=== PATIENT | male | born 1955 | race Caucasian/White ===

== ENCOUNTER 2019-03-01 11:14 | Inpatient (IN) | payer OTHER ==
[~2019-03-01] VITALS: Ht 332.7 cm; Wt 65.2 kg
[2019-03-01] MEDS ORDERED: aspirin 81mg tab.chew PO ONE (11:55)
[2019-03-01] MEDS ORDERED: nitroGLYCERIN 0.4mg/hour patch TD ONE (11:55)
[2019-03-01 12:04] LABS: BASOPHILS # (AUTO) 0.1 X10'3 (0-0.2); BASOPHILS % (AUTO) 0.6 % (0-1); EOSINOPHILS # (AUTO) 0.1 X10'3 (0-0.9); EOSINOPHILS % (AUTO) 0.5 % (0-6); HEMATOCRIT 44.3 % (42.0-52.0); HEMOGLOBIN 15.9 g/dl (14.0-17.9); LYMPHOCYTES # (AUTO) 2.6 X10'3 (1.1-4.8); LYMPHOCYTES % (AUTO) 21.5 % (21-51); MEAN CORPUSCULAR HEMOGLOBIN 41.4 PG (27.0-31.0); MEAN CORPUSCULAR HGB CONC 35.9 g/dL (33.0-36.5); MEAN CORPUSCULAR VOLUME 115.6 FL (78-98); MEAN PLATELET VOLUME 6.6 FL (7.4-10.4); MONOCYTES # (AUTO) 1.4 X10'3 (0-0.9); MONOCYTES % (AUTO) 11.4 % (2-12); NEUTROPHILS # (AUTO) 8.2 X10'3 (1.8-7.7); PLATELET COUNT 336 X10'3 (140-440); RED BLOOD COUNT 3.83 X10'6 (4.70-6.10); RED CELL DISTRIBUTION WIDTH 13.4 % (11.5-14.5); WHITE BLOOD COUNT 12.3 X10'3 (4.5-11.0)
[2019-03-01 12:05] LABS: ALANINE AMINOTRANSFERASE 14 U/L (12-78); ALBUMIN 4.4 G/DL (3.4-5.0); ALBUMIN/GLOBULIN RATIO 1.2 (1.1-1.5); ALKALINE PHOSPHATASE 92 IU/L (46-116); ANION GAP 12 (8-16); ASPARTATE AMINO TRANSFERASE 13 U/L (10-37); BILIRUBIN,TOTAL 0.5 MG/DL (0.1-1.0); BLOOD UREA NITROGEN 11 MG/DL (7-18); BUN/CREATININE RATIO 10.6 (5.4-32.0); CALCIUM 9.6 MG/DL (8.5-10.1); CHLORIDE 97 MMOL/L (99-107); CREATININE 1.04 MG/DL (0.60-1.10); GLUCOSE 131 MG/DL (70-104); POTASSIUM 3.9 MMOL/L (3.5-5.1); SODIUM 133 MMOL/L (135-145); TOTAL CARBON DIOXIDE 23.9 MMOL/L (24-32); eGFR 72 ML/MIN
[2019-03-01 12:13] LABS: PLATELET ESTIMATE NORMAL; POLYCHROMASIA FEW
[2019-03-01 12:14] LABS: STOMATOCYTES 1+
[2019-03-01] MEDS ORDERED: magnesium 2GM in 50ml NS 50 ML IV PRN (12:50)
[2019-03-01] MEDS ORDERED: ondansetron/PF 4mg/2ml inj IV PRN (12:50)
[2019-03-01] MEDS ORDERED: potassium CL 10mEq/100ml bag 100 ML IV PRN ×2 (12:50)
[2019-03-01] MEDS ORDERED: mag hydrox/Alum hydrox/simeth 30ml oral suspension PO PRN (12:50)
[2019-03-01] MEDS ORDERED: NAPR-435 PO (12:50)
[2019-03-01] MEDS ORDERED: regadenoson 0.4mg/5ml syringe IV ONE (12:50)
[2019-03-01] MEDS ORDERED: metoprolol tartrate 1mg/ml inj IV PRN (12:50)
[2019-03-01] MEDS ORDERED: magnesium 4gm in 100ml NS 100 ML IV PRN (12:50)
[2019-03-01] MEDS ORDERED: CLON0.2T PO (12:50)
[2019-03-01] MEDS ORDERED: IRBE300T19 PO (12:50)
[2019-03-01] MEDS ORDERED: nitroGLYCERIN 0.4mg SUBLingual tab SL PRN (12:50)
[2019-03-01] MEDS ORDERED: MAGN400C PO (12:50)
[2019-03-01] MEDS ORDERED: ipratropium/albuterol 3ml nebule NEB PRN (12:50)
[2019-03-01] MEDS ORDERED: OXYC10TA47 PO (12:50)
[2019-03-01] MEDS ORDERED: METH500T6 PO (12:50)
[2019-03-01] MEDS ORDERED: aminophylline 250mg/10ml inj. IV PRN (12:50)
[2019-03-01] MEDS ORDERED: potassium Cl 20 mEq SR tablet PO PRN ×2 (12:50)
[2019-03-01] MEDS ORDERED: AMLO10TA PO (12:50)
[2019-03-01] MEDS ORDERED: haloperidol lactate 5mg/ml inj IM PRN (13:25)
[2019-03-01] MEDS ORDERED: haloperidol 5mg tablet PO PRN (13:25)
[2019-03-01] MEDS ORDERED: LORazepam 1 MG tablet PO PRN (13:25)
[2019-03-01] MEDS ORDERED: thiamine inj. 100 MG in normal saline 100ml IV soln 100 ML IV ONE (13:25)
[2019-03-01] MEDS ORDERED: LORazepam 2 mg/ml vial IV PRN (13:25)
[2019-03-01] MEDS ORDERED: iohexol 350MG/ML 100ml bottle IV ONE (13:53)
--- NOTE | 2019-03-01 14:50 | NUR ---
Received report from Noemy FERMIN in the ED, patient arrived to PCU by wheelchair, oriented to room. Ambulated self to bed. 2 RN skin check done. Vitals BP 131/72, HR 90, Temp 98.0 F, 02 92 RA, No pain.
[2019-03-01 15:00] VITALS: BP 121/74
[2019-03-01] MEDS: cyclobenzaprine 10mg tablet PO SCH ×2 (16:00→23:54)
[2019-03-01] MEDS ORDERED: FLU VACC QS2019-20 36MOS UP/PF 60 MCG/0.5 ML SYRINGE IMVAC ONE (17:50)
--- NOTE | 2019-03-01 18:39 | NUR ---
Patient in room PCU 3018. I have received report from ZANDER Marie and had the opportunity to ask questions and assume patient care.
--- NOTE | 2019-03-01 18:40 | NUR ---
Problems reprioritized. Patient report given, questions answered & plan of care reviewed with Marissa FERMIN. All patient's needs met at this time.
[2019-03-01] MEDS: cloNIDine 0.1 mg tablet PO SCH (20:00)
[2019-03-01] MEDS ORDERED: magnesium oxide 400mg tablet PO SCH (20:00)
[2019-03-01] MEDS: docusate sod 100mg capsule PO SCH (20:00)
[2019-03-01] MEDS: oxyCODONE IR 5mg (immed. release) tablet PO PRN (21:47)
[2019-03-01] MEDS: nicotine 14mg patch - 24hr TD SCH (21:49)
[2019-03-01 23:57] VITALS: BP 118/64
[2019-03-02] VITALS (15 sets, daily range): BP systolic 106–154; BP diastolic 61–75
[2019-03-02 05:43] LABS: BASOPHILS # (AUTO) 0.1 X10'3 (0-0.2); EOSINOPHILS # (AUTO) 0.2 X10'3 (0-0.9); EOSINOPHILS % (AUTO) 1.6 % (0-6); HEMATOCRIT 37.4 % (42.0-52.0); HEMOGLOBIN 13.4 g/dl (14.0-17.9); LYMPHOCYTES # (AUTO) 4.3 X10'3 (1.1-4.8); LYMPHOCYTES % (AUTO) 38.3 % (21-51); MEAN CORPUSCULAR HEMOGLOBIN 41.3 PG (27.0-31.0); MEAN CORPUSCULAR HGB CONC 35.8 g/dL (33.0-36.5); MEAN CORPUSCULAR VOLUME 115.3 FL (78-98); MEAN PLATELET VOLUME 7.2 FL (7.4-10.4); MONOCYTES # (AUTO) 1.1 X10'3 (0-0.9); NEUTROPHILS # (AUTO) 5.5 X10'3 (1.8-7.7); NEUTROPHILS % (AUTO) 49.1 % (42-75); PLATELET COUNT 287 X10'3 (140-440); RED BLOOD COUNT 3.24 X10'6 (4.70-6.10); RED CELL DISTRIBUTION WIDTH 13.1 % (11.5-14.5); WHITE BLOOD COUNT 11.1 X10'3 (4.5-11.0)
--- NOTE | 2019-03-02 06:29 | NUR ---
Problems reprioritized. Patient report given, questions answered & plan of care reviewed with ZANDER Mckinnon.
--- NOTE | 2019-03-02 06:35 | NUR ---
Patient in room PCU 3018. I have received report from ZANDER Ann and had the opportunity to ask questions and assume patient care.
[2019-03-02 06:37] LABS: ALANINE AMINOTRANSFERASE 10 U/L (12-78); ALBUMIN 3.5 G/DL (3.4-5.0); ALBUMIN/GLOBULIN RATIO 1.1 (1.1-1.5); ALKALINE PHOSPHATASE 73 IU/L (46-116); ANION GAP 10 (8-16); ASPARTATE AMINO TRANSFERASE 14 U/L (10-37); BILIRUBIN,TOTAL 0.5 MG/DL (0.1-1.0); BLOOD UREA NITROGEN 10 MG/DL (7-18); BUN/CREATININE RATIO 11.1 (5.4-32.0); CALCIUM 8.8 MG/DL (8.5-10.1); CHLORIDE 102 MMOL/L (99-107); CHOL/HDL RATIO 2.8 (0.00-4.99); CHOLESTEROL 163 MG/DL (0-200); GLUCOSE 90 MG/DL (70-104); HDL CHOLESTEROL 58 MG/DL (35-60); LDL CHOLESTEROL 102 MG/DL (50-100); MAGNESIUM 2.2 MG/DL (1.5-2.4); PHOSPHORUS 3.6 MG/DL (2.3-4.5); POTASSIUM 3.9 MMOL/L (3.5-5.1); SODIUM 136 MMOL/L (135-145); TOTAL PROTEIN 6.6 G/DL (6.4-8.2); TRIGLYCERIDES 80 MG/DL (20-135); eGFR 85 ML/MIN
[2019-03-02] MEDS: cyclobenzaprine 10mg tablet PO SCH ×2 (07:40→15:39)
[2019-03-02] MEDS: oxyCODONE IR 5mg (immed. release) tablet PO PRN ×3 (07:40→20:40)
[2019-03-02] MEDS ORDERED: amLODIPine 5mg tablet PO SCH (08:00)
[2019-03-02] MEDS: docusate sod 100mg capsule PO SCH ×2 (08:00→20:42)
[2019-03-02] MEDS: K and/or MAG REPLACEMENT MC SCH (08:00)
[2019-03-02] MEDS ORDERED: magnesium oxide 400mg tablet PO SCH ×2 (08:00→20:24)
[2019-03-02] MEDS ORDERED: folic acid inj. 2 MG, MVI, adult No.4 with vit. K 10 ML in dextrose 5% water 500ml 500 ML IV SCH ×3 (08:00)
[2019-03-02] MEDS ORDERED: nicotine 14mg patch - 24hr TD SCH (08:00)
[2019-03-02] MEDS: enoxaparin 40mg/0.4ml syringe SQ SCH (10:56)
[2019-03-02] MEDS: cloNIDine 0.1 mg tablet PO SCH ×2 (10:56→20:40)
--- NOTE | 2019-03-02 11:26 | NUR ---
Paged Dr. Puga to notify of Betsy scan results. PAGER ID: [phone] MESSAGE: [phone] Severiano Beth: MANYDI the patients Betsy scan has resulted. Can he have a diet ordered? Thanks, Pratibha deutsch [phone]
[2019-03-02] MEDS: thiamine 100mg tablet PO SCH (12:26)
[2019-03-02] MEDS: folic acid 1mg tablet PO SCH (12:26)
[2019-03-02] MEDS: aspirin 81mg tablet.DR PO SCH (12:26)
[2019-03-02] MEDS ORDERED: iohexol 350MG/ML 100ml bottle IV ONE (17:02)
[2019-03-02] MEDS ORDERED: iohexol 350 MG/ML 50ML vial IV ONE (17:02)
--- NOTE | 2019-03-02 17:17 | NUR ---
Patient leaving the floor for CT.
--- NOTE | 2019-03-02 18:30 | NUR ---
Problems reprioritized. Patient report given, questions answered & plan of care reviewed with ZANDER Ann.
--- NOTE | 2019-03-02 19:08 | NUR ---
Patient in room PCU 3018. I have received report from ZANDER Mckinnon and had the opportunity to ask questions and assume patient care.
[2019-03-02] MEDS ORDERED: losartan 50mg tablet PO SCH ×3 (20:00→20:23)
[2019-03-02] MEDS: metoprolol tartrate 25mg tablet PO SCH (20:42)
[2019-03-02] MEDS: nicotine 14mg patch - 24hr TD SCH (20:44)
[2019-03-03] MEDS: cyclobenzaprine 10mg tablet PO SCH ×2 (00:27→07:30)
[2019-03-03 02:47] VITALS: BP 119/68
[2019-03-03 04:56] LABS: BASOPHILS # (AUTO) 0.1 X10'3 (0-0.2); BASOPHILS % (AUTO) 0.7 % (0-1); EOSINOPHILS # (AUTO) 0.2 X10'3 (0-0.9); EOSINOPHILS % (AUTO) 2.1 % (0-6); HEMATOCRIT 40.5 % (42.0-52.0); HEMOGLOBIN 14.5 g/dl (14.0-17.9); LYMPHOCYTES # (AUTO) 3.8 X10'3 (1.1-4.8); LYMPHOCYTES % (AUTO) 36.5 % (21-51); MEAN CORPUSCULAR HEMOGLOBIN 41.1 PG (27.0-31.0); MEAN CORPUSCULAR HGB CONC 35.8 g/dL (33.0-36.5); MEAN CORPUSCULAR VOLUME 114.9 FL (78-98); MEAN PLATELET VOLUME 6.8 FL (7.4-10.4); MONOCYTES # (AUTO) 1.2 X10'3 (0-0.9); MONOCYTES % (AUTO) 11.4 % (2-12); NEUTROPHILS # (AUTO) 5.1 X10'3 (1.8-7.7); NEUTROPHILS % (AUTO) 49.3 % (42-75); PLATELET COUNT 293 X10'3 (140-440); RED BLOOD COUNT 3.53 X10'6 (4.70-6.10); RED CELL DISTRIBUTION WIDTH 13.3 % (11.5-14.5); WHITE BLOOD COUNT 10.4 X10'3 (4.5-11.0)
[2019-03-03 05:17] LABS: ALANINE AMINOTRANSFERASE 9 U/L (12-78); ALBUMIN 3.4 G/DL (3.4-5.0); ALKALINE PHOSPHATASE 77 IU/L (46-116); ANION GAP 9 (8-16); ASPARTATE AMINO TRANSFERASE 10 U/L (10-37); BILIRUBIN,TOTAL 0.5 MG/DL (0.1-1.0); BLOOD UREA NITROGEN 14 MG/DL (7-18); BUN/CREATININE RATIO 16.1 (5.4-32.0); CALCIUM 9.4 MG/DL (8.5-10.1); CHLORIDE 103 MMOL/L (99-107); CREATININE 0.87 MG/DL (0.60-1.10); GLUCOSE 90 MG/DL (70-104); MAGNESIUM 2.1 MG/DL (1.5-2.4); PHOSPHORUS 3.8 MG/DL (2.3-4.5); SODIUM 136 MMOL/L (135-145); TOTAL CARBON DIOXIDE 23.9 MMOL/L (24-32); TOTAL PROTEIN 6.7 G/DL (6.4-8.2); eGFR 88 ML/MIN
--- NOTE | 2019-03-03 06:15 | NUR ---
Patient in room PCU 3018. I have received report from Marissa FERMIN and had the opportunity to ask questions and assume patient care.
--- NOTE | 2019-03-03 06:15 | NUR ---
Problems reprioritized. Patient report given, questions answered & plan of care reviewed with ZANDER Mckinnon.
[2019-03-03] MEDS: K and/or MAG REPLACEMENT MC SCH (06:38)
[2019-03-03 07:00] VITALS: BP 136/76
[2019-03-03] MEDS: folic acid 1mg tablet PO SCH (07:30)
[2019-03-03] MEDS: docusate sod 100mg capsule PO SCH (07:30)
[2019-03-03] MEDS: enoxaparin 40mg/0.4ml syringe SQ SCH (07:30)
[2019-03-03] MEDS: cloNIDine 0.1 mg tablet PO SCH (07:31)
[2019-03-03] MEDS: metoprolol tartrate 25mg tablet PO SCH (07:32)
[2019-03-03] MEDS: thiamine 100mg tablet PO SCH (07:32)
[2019-03-03] MEDS: oxyCODONE IR 5mg (immed. release) tablet PO PRN (07:32)
[2019-03-03 07:36] LABS: PLATELET ESTIMATE NORMAL
[2019-03-03] MEDS ORDERED: atorvastatin 20mg tablet PO SCH (08:00)
--- NOTE | 2019-03-03 08:22 | NUR ---
Called and spoke the pharmacist, per pharmacist, patient to have Nicotine patch that was applied 03/02 2044 be removed and apply new Nicotine patch with am medication pass.
[2019-03-03] MEDS ORDERED: NICO-631 TD (09:05)
[2019-03-03] MEDS ORDERED: NITR0.4T51 SL (09:05)
[2019-03-03] MEDS ORDERED: ATOR20TA66 PO (09:05)
[2019-03-03] MEDS ORDERED: ASPI-1071 PO (09:05)
[2019-03-03] MEDS: aspirin 81mg tablet.DR PO SCH (09:18)
[2019-03-03] MEDS: nicotine 14mg patch - 24hr TD SCH (09:19)
[2019-03-03 11:00] VITALS: BP 130/76
--- NOTE | 2019-03-03 11:50 | NUR ---
Pt stable for d/c per md order, discharge instructions given, all questions and concerns addressed, new prescriptions called into [facility], smoking cessation education material reviewed, telel monitor d/c, PIV taken out, walked off unit with RN and .
[2019-03-03] MEDS ORDERED: METO25TA6 PO (18:30)
== END 2019-03-03 11:59 | disposition home or self-care (01) | DRG 303 ==
LOC: ER 11:14 → ED HOLD 13:06 → PCU 3S 14:50
PROVIDERS: ADMIT Family Medicine; ATTEND Family Medicine
PROC: B32T1ZZ Computerized Tomography (CT Scan) of Left Pulmonary Artery using Low Osmolar Contrast (ICD-10-PCS; principal; 2019-03-01)
PROC: B3201ZZ Computerized Tomography (CT Scan) of Thoracic Aorta using Low Osmolar Contrast (ICD-10-PCS; 2019-03-01)
PROC: B32S1ZZ Computerized Tomography (CT Scan) of Right Pulmonary Artery using Low Osmolar Contrast (ICD-10-PCS; 2019-03-01)
PROC: 4A02XM4 Measurement of Cardiac Total Activity, External Approach (ICD-10-PCS; 2019-03-02)
PROC: 3E033HZ Introduction of Radioactive Substance into Peripheral Vein, Percutaneous Approach (ICD-10-PCS; 2019-03-02)
PROC: BQ2S1ZZ Computerized Tomography (CT Scan) of Left Lower Extremity using Low Osmolar Contrast (ICD-10-PCS; 2019-03-02)
DX: I25.110 Atherosclerotic heart disease of native coronary artery with unstable angina pectoris (principal); E87.1 Hypo-osmolality and hyponatremia; B19.20 Unspecified viral hepatitis C without hepatic coma; D72.823 Leukemoid reaction; E78.00 Pure hypercholesterolemia, unspecified; E78.5 Hyperlipidemia, unspecified; M54.9 Dorsalgia, unspecified; M54.5 Low back pain; R00.0 Tachycardia, unspecified; F17.290 Nicotine dependence, other tobacco product, uncomplicated; G89.29 Other chronic pain; I10 Essential (primary) hypertension; I73.9 Peripheral vascular disease, unspecified; Z79.82 Long term (current) use of aspirin; Z79.899 Other long term (current) drug therapy; Z28.21 Immunization not carried out because of patient refusal; Z88.5 Allergy status to narcotic agent; Z72.89 Other problems related to lifestyle; Z71.6 Tobacco abuse counseling
CPT/HCPCS: 36415; 71045; 71275; 73706; 78452; 80053; 80061; 83735; 84100; 84484; 85025; 87081; 93005; 93017; 93306; 93922; 93925; 94760; 99285; A9500; G0378; J0280; J1650; J2785; J3411; J3490; J7060; Q2037; Q9967

== ENCOUNTER 2019-07-19 10:32 | Day surgery (SDC) | payer MEDICARE ==
[~2019-07-19] VITALS: Ht 180.3 cm; Wt 64.0 kg
[2019-07-19] VITALS (11 sets, daily range): BP systolic 152–181; BP diastolic 71–77
[~2019-07-19 10:32] MED LIST: ASPI-1071 PO; ATOR20TA66 PO; CLON0.2T PO; IRBE300T18 PO; MAGN400C PO; METH500T6 PO; METO25TA6 PO; NICO-631 TD; NITR0.4T51 SL; OXYC10TA47 PO
[2019-07-19] MEDS ORDERED: normal saline 1,000 ML IV SCH (10:55)
[2019-07-19] MEDS ORDERED: diphenhydrAMINE 25mg capsule PO PRN (10:55)
[2019-07-19] MEDS ORDERED: METO25TA6 PO (11:12)
[2019-07-19] MEDS ORDERED: ASPI81TA52 PO (11:12)
[2019-07-19] MEDS ORDERED: NITR0.4T51 SL (11:12)
[2019-07-19] MEDS ORDERED: ATOR20TA PO (11:12)
[2019-07-19] MEDS ORDERED: METO-467 PO (11:12)
[2019-07-19] MEDS ORDERED: LOSA100T3 PO (11:13)
[2019-07-19] MEDS ORDERED: PER5325T PO (11:15)
[2019-07-19 11:49] LABS: BASOPHILS % (AUTO) 0.7 % (0-1); EOSINOPHILS # (AUTO) 0.1 X10'3 (0-0.9); EOSINOPHILS % (AUTO) 1.1 % (0-6); HEMATOCRIT 35.9 % (42.0-52.0); HEMOGLOBIN 12.2 g/dl (14.0-17.9); LYMPHOCYTES # (AUTO) 2.5 X10'3 (1.1-4.8); LYMPHOCYTES % (AUTO) 39.2 % (21-51); MEAN CORPUSCULAR HEMOGLOBIN 40.5 PG (27.0-31.0); MEAN CORPUSCULAR HGB CONC 34.1 g/dL (33.0-36.5); MEAN CORPUSCULAR VOLUME 118.8 FL (78-98); MEAN PLATELET VOLUME 6.9 FL (7.4-10.4); MONOCYTES # (AUTO) 0.6 X10'3 (0-0.9); MONOCYTES % (AUTO) 9.7 % (2-12); NEUTROPHILS # (AUTO) 3.2 X10'3 (1.8-7.7); NEUTROPHILS % (AUTO) 49.3 % (42-75); PLATELET COUNT 317 X10'3 (140-440); RED BLOOD COUNT 3.02 X10'6 (4.70-6.10); RED CELL DISTRIBUTION WIDTH 16.8 % (11.5-14.5); WHITE BLOOD COUNT 6.4 X10'3 (4.5-11.0)
[2019-07-19 12:05] LABS: ALBUMIN 3.8 G/DL (3.4-5.0); ANION GAP 8 (8-16); BLOOD UREA NITROGEN 8 MG/DL (7-18); BUN/CREATININE RATIO 9.5 (5.4-32.0); CALCIUM 9.1 MG/DL (8.5-10.1); CHLORIDE 106 MMOL/L (99-107); CREATININE 0.84 MG/DL (0.60-1.10); GLUCOSE 99 MG/DL (70-104); MAGNESIUM 2.1 MG/DL (1.5-2.4); POTASSIUM 4.4 MMOL/L (3.5-5.1); SODIUM 139 MMOL/L (135-145); TOTAL CARBON DIOXIDE 24.7 MMOL/L (24-32); eGFR > 90 ML/MIN
[2019-07-19] MEDS ORDERED: midazolam 2 mg/2 ml injection ONE ×2 (12:20→12:40)
[2019-07-19] MEDS ORDERED: fentaNYL/PF 50MCG/1 ML 2ML syringe ONE (12:20)
[2019-07-19] MEDS ORDERED: LIDOcaine 1% (10mg/ml)w/preservative injection 20ml MDV ONE (12:20)
[2019-07-19] MEDS ORDERED: heparin 1,000unit/ml 10ml vial 10 ML ONE (12:21)
[2019-07-19] MEDS ORDERED: iohexol 350MG/ML 100ml bottle IV ONE (12:21)
[2019-07-19] MEDS ORDERED: iohexol 350 MG/ML 50ML vial IV ONE (12:21)
[2019-07-19 12:26] LABS: ANISOCYTOSIS 1+; PLATELET ESTIMATE NORMAL; STOMATOCYTES FEW
== END 2019-07-19 17:00 | disposition home or self-care (01) ==
LOC: SSTAY O 10:32 → MED 3N 10:33 → SSTAY O 17:00
PROVIDERS: ATTEND Internal Medicine Cardiovascular Disease
DX: R07.9 Chest pain, unspecified (principal); I25.110 Atherosclerotic heart disease of native coronary artery with unstable angina pectoris; I25.82 Chronic total occlusion of coronary artery; E78.5 Hyperlipidemia, unspecified; I10 Essential (primary) hypertension; M19.90 Unspecified osteoarthritis, unspecified site; F17.210 Nicotine dependence, cigarettes, uncomplicated; Z98.890 Other specified postprocedural states; Z86.19 Personal history of other infectious and parasitic diseases; Z88.8 Allergy status to other drugs, medicaments and biological substances; Z79.899 Other long term (current) drug therapy; Z79.82 Long term (current) use of aspirin
CPT/HCPCS: 36415; 80048; 83735; 85025; 85610; 93005; 93458; 93571; 99152; 99153; C1769; C1894; J1644; J2001; J2250; J3010; J7030; Q0163; Q9967; 75710; A4620; A6258; C1760; GO378

== ENCOUNTER 2019-09-23 08:00 | Inpatient (IN) | payer MEDICARE, BC ==
[2019-09-20 10:12] LABS: BASOPHILS # (AUTO) 0.1 X10'3 (0-0.2); BASOPHILS % (AUTO) 1.2 % (0-1); EOSINOPHILS # (AUTO) 0.1 X10'3 (0-0.9); LYMPHOCYTES % (AUTO) 23.9 % (21-51); MEAN CORPUSCULAR HEMOGLOBIN 39.2 PG (27.0-31.0); MEAN CORPUSCULAR HGB CONC 34.6 g/dL (33.0-36.5); MEAN CORPUSCULAR VOLUME 113.3 FL (78-98); MEAN PLATELET VOLUME 7.4 FL (7.4-10.4); MONOCYTES % (AUTO) 12.2 % (2-12); NEUTROPHILS # (AUTO) 5.3 X10'3 (1.8-7.7); NEUTROPHILS % (AUTO) 61.7 % (42-75); PRE OP HEMATOCRIT 45.6 % (42.0-52.0); PRE OP HEMOGLOBIN 15.8 g/dL (14.0-17.9); PRE OP PLATELET COUNT 259 X10'3 (140-440); RED BLOOD COUNT 4.02 X10'6 (4.70-6.10); RED CELL DISTRIBUTION WIDTH 14.3 % (11.5-14.5)
[2019-09-20 10:14] LABS: CLARITY,URINE CLEAR (Clear); COLOR,URINE YELLOW (Yellow); GLUCOSE, URINE NEGATIVE (Neg); KETONES,URINE TRACE mg/dl (Neg); LEUKOCYTE ESTERASE ,URINE TRACE (Neg); NITRITES, URINE NEGATIVE (Neg); OCCULT BLOOD,URINE NEGATIVE (Neg); PROTEIN,URINE NEGATIVE (Neg); UROBILINOGEN,URINE 0.2 E.U/dL (0.2-1.0)
[2019-09-20 10:26] LABS: UA COLLECTION TYPE CLN CATCH MIDSTREAM
[2019-09-20 10:27] LABS: FINE GRANULAR CAST 0-3 /LPF (NEGATIVE)
[2019-09-20 10:28] LABS: HYALINE CASTS 0-3 /LPF (NEGATIVE); MUCUS STRANDS NONE SEEN /LPF (Neg); SQUAMOUS EPITHELIAL CELL,UR NONE SEEN /LPF (FEW)
[2019-09-20 10:29] LABS: BACTERIA,URINE NONE SEEN /HPF (Neg); PRE OP INR 0.9 INR; PRE OP PROTIME 9.7 SECONDS (9.0-12.0); RBC,URINE 0-2 /HPF (0-2); TRANSITIONAL EPI CELLS,URINE FEW /HPF; WBC,URINE 0-4 /HPF (0-4)
[2019-09-20 10:32] LABS: ALBUMIN/GLOBULIN RATIO 1.1 (1.1-1.5); ALKALINE PHOSPHATASE 85 IU/L (46-116); BLOOD UREA NITROGEN 10 MG/DL (7-18); BUN/CREATININE RATIO 11.4 (5.4-32.0); CALCIUM 9.2 MG/DL (8.5-10.1); CHLORIDE 101 MMOL/L (99-107); CREATININE 0.88 MG/DL (0.60-1.10); PRE OP ALT 44 U/L (30-65); PRE OP ANION GAP 11 (8-16); PRE OP AST 51 U/L (10-37); PRE OP BILIRUB, TOTAL 0.5 MG/DL (0.0-1.0); PRE OP GLUCOSE 94 MG/DL (70-104); PRE OP POTASSIUM 4.9 MMOL/L (3.4-5.1); PRE OP SODIUM 136 MMOL/L (135-145); TOTAL CARBON DIOXIDE 24.4 MMOL/L (24-32); TOTAL PROTEIN 7.5 G/DL (6.4-8.2); eGFR 87 ML/MIN
[2019-09-20 10:54] LABS: PLATELET ESTIMATE NORMAL
[~2019-09-23] VITALS: Ht 180.3 cm; Wt 65.4 kg
[~2019-09-23 08:00] MED LIST changes: -ASPI-1071 PO; +ASPI81TA52 PO; +ATOR20TA PO; -ATOR20TA66 PO; -IRBE300T18 PO; +LOSA100T3 PO; +METO-395 PO; -METO25TA6 PO; -NICO-631 TD; -OXYC10TA47 PO; +OXYC5CAP19 PO; +albuterol 2.5 MG/3 ML nebule NEB ONE
[2019-09-27] VITALS (21 sets, daily range): BP systolic 122–152; BP diastolic 73–89
[2019-09-27] MEDS ORDERED: ringers solution, lacted 1,000 ML IV SCH ×2 (05:00→09:01)
[2019-09-27] MEDS ORDERED: DOCUMENT DATE & TIME OF BETA-BLOCKER PO ONE (05:30)
[2019-09-27] MEDS ORDERED: famotidine 20mg tablet PO ONE (05:30)
[2019-09-27] MEDS ORDERED: cefazolin/dext.iso 2gm/50ml 50 ML IV ONE (05:30)
[2019-09-27] MEDS ORDERED: albuterol 2.5 MG/3 ML nebule NEB ONE (05:30)
[2019-09-27] MEDS ORDERED: meperidine/PF 25mg/ml syringe IV PRN ×3 (09:05)
[2019-09-27] MEDS ORDERED: proCHLORperazine 10 MG/2 ml inj IV PRN (09:05)
[2019-09-27] MEDS ORDERED: morphine 4 MG/ML inj SYRINge IV PRN (09:05)
[2019-09-27] MEDS ORDERED: ondansetron/PF 4mg/2ml inj IV PRN (09:05)
[2019-09-27] MEDS ORDERED: morphine 2 MG/ML inj. syringe IV PRN (09:05)
[2019-09-27] MEDS ORDERED: LIDOcaine 1% (10mg/ml) 2ml vial ONE (12:17)
[2019-09-27] MEDS ORDERED: heparin 10,000 units/1 ML INJ ONE (12:17)
[2019-09-27] MEDS ORDERED: ondansetron/PF 4mg/2ml inj ONE (13:12)
[2019-09-27] MEDS ORDERED: sevoflurane 250ml liquid IH ONE (13:12)
[2019-09-27] MEDS ORDERED: dexamethasone sod phosphate 10mg/ml inj ONE (13:12)
[2019-09-27] MEDS ORDERED: fentaNYL /PF 50mcg/ml 5ml ampule ONE (13:13)
[2019-09-27] MEDS ORDERED: MIDAZolam 5mg/5ml vial ONE (13:13)
[2019-09-27] MEDS ORDERED: LIDOcaine 2% (20mg/ml) 5ml vial ONE (14:26)
[2019-09-27] MEDS ORDERED: albumin (Human) 5% 250ml 250 ML IV ONE (14:26)
[2019-09-27] MEDS ORDERED: rocuronium 10mg/ml inj IV ONE (14:26)
[2019-09-27] MEDS ORDERED: propofol inj 20 ML IV ONE (14:26)
[2019-09-27] MEDS ORDERED: labetalol 20mg/4ml (5mg/ml) syringe IV ONE (14:32)
[2019-09-27] MEDS ORDERED: morphine 4 MG/ML inj SYRINge ONE (16:00)
[2019-09-27] MEDS ORDERED: clindamycin phosphate 150mg/ml inj. ONE (16:00)
[2019-09-27] MEDS ORDERED: gentamicin 40 MG/1 ML inj ONE (16:00)
[2019-09-27 16:11] LABS: ISTAT ANION GAP 8 (8-12); ISTAT BUN 9 mg/dL (6-19); ISTAT CL 101 mmol/L (99-107); ISTAT CREATININE 0.6 mg/dL (0.8-1.3); ISTAT GLUCOSE 140 mg/dL (70-104); ISTAT HGB 12.2 g/dl (14.0-18.0); ISTAT Hct 36 %PCV (42-52); ISTAT IONIZED CALCIUM 1.08 mmol/L (1.03-1.32); ISTAT K 4.5 mmol/L (3.5-5.1); ISTAT NA 131 mmol/L (135-145); ISTAT TOTAL CO2 22 mmol/L (24-32); ISTAT eGFR > 90 ML/MIN
[2019-09-27] MEDS ORDERED: nitroGLYCERIN-Tridil 50MG/D5W 250 ML IV ONE (16:26)
[2019-09-27] MEDS ORDERED: neostigmine methylsulfate 1 MG/ML 10ml vial ONE (16:33)
[2019-09-27] MEDS ORDERED: glycopyrrolate 0.2mg/ml inj ONE (16:33)
--- NOTE | 2019-09-27 16:44 | NUR ---
Received from OR via , accompanied by Anesthesiologist DR POE and report given by Anesthesiolgist. AWAKENS TO VOICE. VITALS STABLE. DRESSINGS DI. CRISTI PAIN. GILLETTE WITH CLEAR URINE.
[2019-09-27] MEDS ORDERED: HYDROmorphone 1 mg/ml syringe IV PRN ×2 (17:00→20:30)
[2019-09-27 17:24] LABS: PARTIAL THROMBOPLASTIN TIME > 139 SECONDS (22-32)
--- NOTE | 2019-09-27 17:29 | NUR ---
CALLED FOR PTT MORE THAN 139. NO ORDERS RECIEVED
--- NOTE | 2019-09-27 17:44 | NUR ---
Report called to receiving nurse. Transferred via BED Belongings . Special Issues communicated to receiving nurse. AWAKE AND ORIENTED. VITALS STABLE. DRESSINGS DI. STATES PAIN IMPROVING. REMOVED 100CC OF SEROSANG FLUID FROM MAIA. TO ICU RM 2044 AT THIS TIME.
--- NOTE | 2019-09-27 17:45 | NUR ---
received from Benji FERMIN from PACU. Placed on monitor tolerating ice chips. no scds per dr tesfaye. pedal pulses strong and palp bilateral. 95 in
--- NOTE | 2019-09-27 18:06 | NUR ---
report to yasmine FERMIN
[2019-09-27] MEDS: ondansetron/PF 4mg/2ml inj IV PRN (18:16)
[2019-09-27] MEDS: potassium CL 20mEq in D5-1/2NS 1,000 ML IV SCH (18:25)
[2019-09-27] MEDS: nitroGLYCERIN-Tridil 50MG/D5W 250 ML IV PRN (19:43)
[2019-09-27] MEDS ORDERED: HYDROmorphone/NS 1 mg/ml CADD 50 ML IV SCH ×2 (20:50→21:00)
--- NOTE | 2019-09-27 21:00 | NUR ---
2 RN skin check done with NOA Bazan RN. Skin intact. Midline abdominal incision dressing in place. Not seen.
[2019-09-27] MEDS: HYDROmorphone/NS 1 mg/ml CADD 50 ML IV SCH ×2 (21:57→23:00)
[2019-09-28] VITALS (36 sets, daily range): BP systolic 129–186; BP diastolic 73–99
[2019-09-28] MEDS: ceFAZolin inj. 1,000 MG in dextrose 5%-water 50ml 50 ML IV SCH ×3 (00:41→15:13)
[2019-09-28] MEDS: potassium CL 20mEq in D5-1/2NS 1,000 ML IV SCH ×2 (00:42→07:59)
[2019-09-28] MEDS: HYDROmorphone/NS 1 mg/ml CADD 50 ML IV SCH ×12 (01:00→23:00)
[2019-09-28 03:14] LABS: BASOPHILS % (AUTO) 0.1 % (0-1); EOSINOPHILS % (AUTO) 0 % (0-6); HEMATOCRIT 40.4 % (42.0-52.0); HEMOGLOBIN 13.8 g/dl (14.0-17.9); LYMPHOCYTES # (AUTO) 0.7 X10'3 (1.1-4.8); LYMPHOCYTES % (AUTO) 5.8 % (21-51); MEAN CORPUSCULAR HEMOGLOBIN 38.7 PG (27.0-31.0); MEAN CORPUSCULAR HGB CONC 34.3 g/dL (33.0-36.5); MEAN CORPUSCULAR VOLUME 112.9 FL (78-98); MEAN PLATELET VOLUME 7.6 FL (7.4-10.4); MONOCYTES # (AUTO) 1.1 X10'3 (0-0.9); MONOCYTES % (AUTO) 9.1 % (2-12); NEUTROPHILS # (AUTO) 10.6 X10'3 (1.8-7.7); PLATELET COUNT 138 X10'3 (140-440); RED BLOOD COUNT 3.58 X10'6 (4.70-6.10); WHITE BLOOD COUNT 12.5 X10'3 (4.5-11.0)
[2019-09-28 03:25] LABS: ALBUMIN 3.1 G/DL (3.4-5.0); ANION GAP 9 (8-16); BLOOD UREA NITROGEN 9 MG/DL (7-18); BUN/CREATININE RATIO 7.7 (5.4-32.0); CHLORIDE 101 MMOL/L (99-107); CREATININE 1.17 MG/DL (0.60-1.10); GLUCOSE 213 MG/DL (70-104); POTASSIUM 4.9 MMOL/L (3.5-5.1); SODIUM 132 MMOL/L (135-145); TOTAL CARBON DIOXIDE 21.8 MMOL/L (24-32); eGFR 63 ML/MIN
[2019-09-28] MEDS: nitroGLYCERIN-Tridil 50MG/D5W 250 ML IV PRN ×2 (06:38→22:30)
--- NOTE | 2019-09-28 12:33 | NUR ---
Spoke with Dr. Posadas regarding pt art line oozing blood. He said it would be ok to remove it. ART line removed without difficulty for the pt. Pressure dressing applied and will be on for about 20 minutes prior to removal. Direct pressure was held for 5 minutes.
[2019-09-28] MEDS ORDERED: nitroGLYCERIN 0.4mg SUBLingual tab SL PRN (14:50)
[2019-09-28] MEDS ORDERED: hydrALAZINE 20mg/ml inj. IV PRN (14:50)
--- NOTE | 2019-09-28 14:50 | NUR ---
Spoke with Dr. Posadas, we went through the med rec together and I received orders for a prn hypertensive agent. Med rec faxed to pharmacy.
[2019-09-28] MEDS ORDERED: cyclobenzaprine 10mg tablet PO PRN (15:00)
[2019-09-28] MEDS ORDERED: oxyCODONE IR 5mg (immed. release) tablet PO PRN (15:00)
[2019-09-28] MEDS: metoprolol tartrate 25mg tablet PO SCH ×2 (15:06→21:01)
[2019-09-28] MEDS: ondansetron/PF 4mg/2ml inj IV PRN (16:11)
--- NOTE | 2019-09-28 16:28 | NUR ---
MAIA drain removed, soriano removed, dressing changed
--- NOTE | 2019-09-28 16:33 | NUR ---
Called Dr. Posadas regarding pulse in the upper 140's low 150's. Left message on MD phone.
--- NOTE | 2019-09-28 17:07 | NUR ---
Paged Dr. Posadas at [phone]
[2019-09-28] MEDS ORDERED: diltiazem 5mg/ml 5ml inj. IV ONE (17:25)
[2019-09-28] MEDS: diltiazem-NS 100mg/100ml 100 ML IV SCH (17:51)
--- NOTE | 2019-09-28 17:57 | NUR ---
Cardizem bolus given, Cardizem gtt started, and MG drawn and sent to lab
--- NOTE | 2019-09-28 18:15 | NUR ---
Patient in room ICU 2044. I have received report from Art RN and had the opportunity to ask questions and assume patient care.
--- NOTE | 2019-09-28 20:00 | NUR ---
Pt instructed to use pillow or folded blanket to support abdominal incision when coughing or repositioning self. Pt coughs strong without bracing incision and complains of incisional pain when coughing. Cough is productive, thick clear colored secretions coughed up. Dehiscence explained to patient & need to support abdominal incision when coughing.
[2019-09-28] MEDS: magnesium oxide 400mg tablet PO SCH (21:01)
[2019-09-28] MEDS: atorvastatin 20mg tablet PO SCH (21:01)
[2019-09-28] MEDS: cloNIDine 0.1 mg tablet PO SCH (21:02)
--- NOTE | 2019-09-28 21:34 | NUR ---
Dr. Hui phoned nurses station inquiring how much magnesium the patient received today. Physician informed that the patient received his evening mag oxide dose 400mg PO. Order received to administer 4Gms magnesium IV.
[2019-09-28] MEDS ORDERED: magnesium 4gm in 100ml NS 100 ML IV ONE (21:35)
[2019-09-29] VITALS (35 sets, daily range): BP systolic 104–158; BP diastolic 65–107
[2019-09-29] MEDS: HYDROmorphone/NS 1 mg/ml CADD 50 ML IV SCH ×12 (01:00→23:00)
[2019-09-29 03:04] LABS: BASOPHILS % (AUTO) 0.4 % (0-1); EOSINOPHILS % (AUTO) 0.1 % (0-6); HEMATOCRIT 37.6 % (42.0-52.0); HEMOGLOBIN 12.8 g/dl (14.0-17.9); LYMPHOCYTES % (AUTO) 17.6 % (21-51); MEAN CORPUSCULAR HEMOGLOBIN 38.8 PG (27.0-31.0); MEAN CORPUSCULAR HGB CONC 34.1 g/dL (33.0-36.5); MEAN CORPUSCULAR VOLUME 113.7 FL (78-98); MEAN PLATELET VOLUME 7.4 FL (7.4-10.4); MONOCYTES # (AUTO) 1.6 X10'3 (0-0.9); MONOCYTES % (AUTO) 14.2 % (2-12); NEUTROPHILS # (AUTO) 7.5 X10'3 (1.8-7.7); NEUTROPHILS % (AUTO) 67.7 % (42-75); PLATELET COUNT 139 X10'3 (140-440); RED BLOOD COUNT 3.31 X10'6 (4.70-6.10); RED CELL DISTRIBUTION WIDTH 13.8 % (11.5-14.5); WHITE BLOOD COUNT 11.1 X10'3 (4.5-11.0)
[2019-09-29 03:06] LABS: ALBUMIN 2.9 G/DL (3.4-5.0); ANION GAP 4 (8-16); BLOOD UREA NITROGEN 6 MG/DL (7-18); BUN/CREATININE RATIO 7.2 (5.4-32.0); CALCIUM 8.4 MG/DL (8.5-10.1); CHLORIDE 100 MMOL/L (99-107); CREATININE 0.83 MG/DL (0.60-1.10); GLUCOSE 130 MG/DL (70-104); POTASSIUM 4.2 MMOL/L (3.5-5.1); SODIUM 131 MMOL/L (135-145); eGFR > 90 ML/MIN
[2019-09-29] MEDS: diltiazem-NS 100mg/100ml 100 ML IV SCH (05:08)
[2019-09-29] MEDS: ondansetron/PF 4mg/2ml inj IV PRN (05:17)
--- NOTE | 2019-09-29 06:30 | NUR ---
Problems reprioritized. Patient report given, questions answered & plan of care reviewed.
--- NOTE | 2019-09-29 06:45 | NUR ---
Patient in room ICU 2044. I have received report from ZANDER Beebe and had the opportunity to ask questions and assume patient care.
[2019-09-29] MEDS: cloNIDine 0.1 mg tablet PO SCH ×2 (07:14→18:43)
[2019-09-29] MEDS: losartan 50mg tablet PO SCH (07:14)
[2019-09-29] MEDS: aspirin 81mg tablet.DR PO SCH (07:14)
[2019-09-29] MEDS: metoprolol tartrate 25mg tablet PO SCH ×2 (07:14→18:43)
--- NOTE | 2019-09-29 16:00 | NUR ---
Informed Dr. Posadas about 10 beat run of vta. Will draw troponin series q8h x3 per MD orders. No other orders at this time
--- NOTE | 2019-09-29 18:05 | NUR ---
Problems reprioritized. Patient report given, questions answered & plan of care reviewed with ZANDER Beebe.
--- NOTE | 2019-09-29 18:15 | NUR ---
Patient in room ICU 2044. I have received report and had the opportunity to ask questions and assume patient care. Pt is awake & alert watching TV. On 4L oxygen NC with saturations 91-93%. Cough is loose non productive at this time. Rhythm is sinus without ectopy. Right IJ triple lumen central line with Dilaudid CADD pump infusing. No distress at this time.
--- NOTE | 2019-09-29 19:15 | NUR ---
Dr Posadas in spoke with patient & will address pain management with PO meds. Pt currently on Dilaudid CADD pump.
[2019-09-29] MEDS ORDERED: oxyCODONE IR 5mg (immed. release) tablet PO PRN (19:20)
[2019-09-29] MEDS: atorvastatin 20mg tablet PO SCH (21:09)
[2019-09-29] MEDS: magnesium oxide 400mg tablet PO SCH (21:09)
--- NOTE | 2019-09-29 23:00 | NUR ---
CADD pump cleared while checking.
[2019-09-30] VITALS (17 sets, daily range): BP systolic 94–172; BP diastolic 58–91
[2019-09-30 00:40] LABS: BASOPHILS # (AUTO) 0.1 X10'3 (0-0.2); BASOPHILS % (AUTO) 1.1 % (0-1); EOSINOPHILS # (AUTO) 0.1 X10'3 (0-0.9); EOSINOPHILS % (AUTO) 0.8 % (0-6); HEMATOCRIT 36.2 % (42.0-52.0); HEMOGLOBIN 12.6 g/dl (14.0-17.9); LYMPHOCYTES # (AUTO) 1.6 X10'3 (1.1-4.8); LYMPHOCYTES % (AUTO) 16.4 % (21-51); MEAN CORPUSCULAR HEMOGLOBIN 39.1 PG (27.0-31.0); MEAN CORPUSCULAR HGB CONC 34.7 g/dL (33.0-36.5); MEAN CORPUSCULAR VOLUME 112.7 FL (78-98); MEAN PLATELET VOLUME 7.4 FL (7.4-10.4); MONOCYTES # (AUTO) 1.3 X10'3 (0-0.9); MONOCYTES % (AUTO) 13.6 % (2-12); NEUTROPHILS # (AUTO) 6.6 X10'3 (1.8-7.7); NEUTROPHILS % (AUTO) 68.1 % (42-75); PLATELET COUNT 137 X10'3 (140-440); RED BLOOD COUNT 3.21 X10'6 (4.70-6.10); WHITE BLOOD COUNT 9.7 X10'3 (4.5-11.0)
[2019-09-30 00:50] LABS: ALBUMIN 2.8 G/DL (3.4-5.0); ANION GAP 6 (8-16); BLOOD UREA NITROGEN 6 MG/DL (7-18); BUN/CREATININE RATIO 7.9 (5.4-32.0); CALCIUM 8.5 MG/DL (8.5-10.1); CHLORIDE 101 MMOL/L (99-107); CREATININE 0.76 MG/DL (0.60-1.10); GLUCOSE 104 MG/DL (70-104); POTASSIUM 4.1 MMOL/L (3.5-5.1); SODIUM 135 MMOL/L (135-145); TOTAL CARBON DIOXIDE 28.3 MMOL/L (24-32); TROPONIN I < 0.04 NG/ML (0.0-0.05); eGFR > 90 ML/MIN
[2019-09-30] MEDS: HYDROmorphone/NS 1 mg/ml CADD 50 ML IV SCH ×5 (01:00→09:00)
--- NOTE | 2019-09-30 01:41 | NUR ---
Sedated, arouses with shaking Oxygen saturation 96% on 4 L. RR 10. CADD pump turned off. BP 112/59. Dozes back to sleep.
--- NOTE | 2019-09-30 02:06 | NUR ---
Awake, drowsy. Requesting pain control button. RR 11-14 Oxygen saturation 94% BP 130/75. CADD pump turned on absent basal rate.
[2019-09-30 02:45] LABS: MAGNESIUM 1.9 MG/DL (1.5-2.4)
[2019-09-30] MEDS ORDERED: magnesium 2GM in 50ml NS 50 ML IV ONE ×2 (03:00→03:20)
--- NOTE | 2019-09-30 04:45 | NUR ---
CHG bath rendered & Pt found with nicotine patch 7mg. on right arm. States he brought them and put it on yesterday because we may not carry them. Pt instructed to remove the patch until the doctor orders them during this admission.Yesterday the patient experienced a run of V Tach with follow up troponin's. 2 remaining Nicotine patches are being sent to pharmacy.
--- NOTE | 2019-09-30 05:38 | NUR ---
Pt in good spirits states pain is 3/10. CADD pump without basal rate.
--- NOTE | 2019-09-30 05:43 | NUR ---
Pulse ox probe changes pt desaturating 87% on 4L oxygen. Pt states he feels SOB. Placed on simple mask 4L. with saturations 90%.
--- NOTE | 2019-09-30 06:19 | NUR ---
Problems reprioritized. Patient report given, questions answered & plan of care reviewed with Melva FERMIN.
[2019-09-30] MEDS: aspirin 81mg tablet.DR PO SCH (08:13)
[2019-09-30] MEDS: losartan 50mg tablet PO SCH (08:14)
[2019-09-30] MEDS: metoprolol tartrate 25mg tablet PO SCH (08:14)
[2019-09-30] MEDS: cloNIDine 0.1 mg tablet PO SCH (08:14)
[2019-09-30] MEDS ORDERED: CADD PCA waste documentation MC SCH (09:15)
[2019-09-30 13:11] LABS: MAGNESIUM 2.2 MG/DL (1.5-2.4); TROPONIN I 0.06 NG/ML (0.0-0.05)
--- NOTE | 2019-09-30 13:24 | NUR ---
Noted pt MCV 112.7 and hx hepatitis C per EMR; ARABELLA d/w RN regarding routine thiamin, folic, MVI if MD agreeable. If not; may benefit from at least B12 supplementation if MD agreeable. Addendum: 09/30/19 at [address] Amended: Links added.
--- NOTE | 2019-09-30 14:10 | NUR ---
O2 Sat at rest on room air:_91__% If below 89%: Recovery O2 Sat at rest on ___LPM:___%:___% via (mask/nasal cannula, etc..) No further documentation is necessary. If O2 Sat did not drop below 89% on room air,ambulate patient on room air. O2 Sat while ambulating on room air:__87_% Recovery O2 Sat while ambulating on _3__LPM:__91_% No further documentation is necessary. If patient does not drop below 89% while ambulating, he/she does not qualify for home O2.
--- NOTE | 2019-09-30 16:42 | NUR ---
Pt stable on dc. Personal belongings on patient. All IV lines dc. DC papers given and signed. [facility] delivered home oxygen unit and educated patient on proper use. Pt verbalized understanding. Addendum: 09/30/19 at 1644 by Rosetta Dent RN Pt on 3L upon discharge home.
--- NOTE | 2019-10-01 14:38 | NUR ---
Case Management DC follow up: spoke to pt via telephone. S/P: L common iliac occlusion, L endarterectomy/embolism Reports: "legs feel better, doing okay, little pain in L abd at site" Denies s/s infection to puncture site. Denies: acute/worsening cp, SOB, resp distress, vertigo, syncope,weakness, blurry vision, N/V, FALCON, emergent general pain, abd tenderness/distension, fever. Verbalizes understanding of s/s that warrant 9-11/ER visit for evaluation. Verbalizes understanding of Rx and why prescribed, resumes current Rx/taking as ordered, no ase r/t polypharmacy. Acknowledges need to schedule/keep follow up appts w/ PCP/Serena Etienne/[place]. [place]/10/04/19. Pt will contact Dr Harper who performed pulmonology tests in hospital. Zackary needs confirmation of necessity for O2 et al Dx of COPD. pt will also relay info re Dx of COPD to PCP. Needs met, questions answered at DC, no further questions at this time.
== END 2019-09-30 16:30 | disposition home or self-care (01) | DRG 271 ==
LOC: EDSTATUS 08:00 → PAS IN 09-27 09:30 → EDSTATUS 09-27 12:00 → ICU 2S 09-27 17:30
PROVIDERS: ADMIT Surgery; ATTEND Surgery
PROC: 02HV33Z Insertion of Infusion Device into Superior Vena Cava, Percutaneous Approach (ICD-10-PCS; 2019-09-27)
PROC: 04CD0ZZ Extirpation of Matter from Left Common Iliac Artery, Open Approach (ICD-10-PCS; principal; 2019-09-27 13:12)
DX: I74.5 Embolism and thrombosis of iliac artery (principal); E87.1 Hypo-osmolality and hyponatremia; I10 Essential (primary) hypertension; E78.5 Hyperlipidemia, unspecified
CPT/HCPCS: 36415; 71045; 71046; 80047; 80048; 80053; 81001; 82948; 83735; 84484; 85025; 85610; 85730; 86885; 86900; 86901; 86920; 87081; 87088; 88300; 94060; 94640; 97110; 97161; 97530; A4618; A6258; A7000; C1758; G0378; J0360; J0690; J1100; J1170; J1580; J1644; J2001; J2175; J2250; J2270; J2405; J2704; J2710; J3010; J3475; J3480; J3490; J7030; J7040; J7060; J7120; P9045

== ENCOUNTER 2020-03-06 10:42 | Outpatient (CLI) | payer MEDICARE, BC ==
[~2020-03-06 10:42] MED LIST changes: -albuterol 2.5 MG/3 ML nebule NEB ONE
== END 2020-03-06 23:59 | disposition home or self-care (01) ==
LOC: VAS 10:42
PROVIDERS: ATTEND Internal Medicine Cardiovascular Disease
DX: I70.203 Unspecified atherosclerosis of native arteries of extremities, bilateral legs (principal)
CPT/HCPCS: 93922; 93925